=== PATIENT | female | born 1950 ===

== ENCOUNTER 2019-09-06 12:48 | Emergency (ER) | payer OTHER ==
[~2019-09-06] VITALS: Ht 167.6 cm; Wt 79.4 kg
[2019-09-06] MEDS ORDERED: SINGULAIR10 MG (12:55)
[2019-09-06] MEDS ORDERED: LOSARTAN POTASS50 MG (12:55)
[2019-09-06] MEDS ORDERED: ZYRTEC10 M3 (12:55)
[2019-09-06] MEDS ORDERED: KETO10TA2 PO (16:07)
== END 2019-09-06 16:35 | disposition home or self-care (01) ==
LOC: ER 12:48
DX: I87.2 Venous insufficiency (chronic) (peripheral) (principal); M25.561 Pain in right knee; M79.604 Pain in right leg; Z03.818 Encounter for observation for suspected exposure to other biological agents ruled out